=== PATIENT | male | born 1985 | race Hispanic/Latino ===

== ENCOUNTER 2025-02-03 08:59 | Emergency (ER) | payer SELFPAY ==
--- NOTE | 2025-02-03 09:09 | ED.MALEGU ---
HPI - Male Genitourinary General Chief complaint: Urogenital-Male Stated complaint: Pain in pelvic area during urination and pain in b Time Seen by Provider: 02/03/25 09:04 Source: patient Mode of arrival: ambulatory Limitations: no limitations History of Present Illness HPI Narrative: Fredrick is a 40-year-old male patient presenting to the clinic today with complaints of burning with urination, pelvic discomfort, low back pain, headache, and lightheadedness. He reports intermittent lightheadedness and headache has been going on for the past week. States that the pain with urination pelvic discomfort and low back pain has been going on for the past 3 months. Has had bilateral testicle pain off and on-no current pain. Has been seen for this before and given a pill to take care of the pain however he has not taken any antibiotics. He had STI 2.5-3 years ago. Denies any known fever but has felt warm and has had some eye burning. Denies any blood in his semen. Denies any blood in his urine. Last bowel movement was yesterday and normal for the patient. No history of prostatitis or epididymitis. Related Data Allergies Allergy/AdvReac Type Severity Reaction Status Date / Time No Known Allergies Allergy Verified 02/03/25 09:17 Review of Systems Review of Systems: Pertinent positives per HPI. Patient denies any fever, chills, rash, visual changes, cough, runny nose, sore throat, shortness of breath, chest pain, palpitations, nausea, vomiting, diarrhea, constipation. PMFSH Comments At the time of my signature, I reviewed and agree with the nursing past medical, surgical, social, and family history. There is no relevant family history pertinent to the patient complaint. Exam Narrative: General: Well-developed, well nourished, in no apparent distress. Head: Normocephalic, atraumatic. Cardio: Regular rate and rhythm, s1 and s2 normal, no murmur appreciated. Resp: Clear to auscultation bilaterally, no rhonchi, rales, wheezing or rubs. Abdomen: Soft, pliable, bowel sounds present in all quadrants, lower abdomen mildly tender to palpation, no organomegly, no CVAT tenderness. : Uncircumcised male without corneal adhesions, no lesions visualized on the scrotum or shaft of the penis, no masses palpable to the bilateral testes, no pain with palpation, no inguinal hernia palpable Musculoskeletal: No deformity, non-tender to palpation, grossly normal range of motion, muscle strength strong and equal in BLE. SLT negative, patellar reflexes 2/4 bilaterally, negative foot drop, normal gait and station Course Course Emergency Course: Portions of this record may have been created with voice recognition software. Level of Care: Express Care Visit Vital Signs Vital signs: Vital Signs Temperature 36.6 C 02/03/25 09:20 Pulse Rate 70 02/03/25 09:20 Respiratory Rate 18 02/03/25 09:20 Blood Pressure 127/84 02/03/25 09:20 Pulse Oximetry 100 02/03/25 09:20 Oxygen Delivery Room Air 02/03/25 09:20 Temperature 36.6 C 02/03/25 09:20 Pulse Rate 70 02/03/25 09:20 Respiratory Rate 18 02/03/25 09:20 Blood Pressure 127/84 02/03/25 09:20 Pulse Oximetry 100 02/03/25 09:20 Oxygen Delivery Room Air 02/03/25 09:20 Vital signs reviewed MDM - Male Genitourinary MDM Narrative Medical decision making narrative: At the time of visit patient is resting comfortably on the exam table. Patient appears to be nontoxic. Labs: Urinalysis negative for any sign of infection. We will send urine for culture. Blood sugar was 91 in the clinic today, chlamydia, gonorrhea, and Trichomonas testing was sent to the lab. Plan: Patient does not have any sign of urinary tract infection in the clinic today. Blood sugar was 91. Will send out testing for STIs. Will place the patient on doxycycline and Pyridium for his symptoms. Recommend follow-up with his PCP in regards to lightheaded and dizziness. Encourage patient to drink plenty of fluids and take Tylenol/Motrin as needed for pain or fever if his symptoms worsen he should go the emergency room. Supportive measures were discussed with the patient and they voiced understanding discharge instructions and agrees to treatment plan. Return precautions reviewed Differential Diagnosis Differential diagnosis: Likely urinary tract infection, urethritis, epididymitis, prostatitis, inguinal hernia and other (STIs) Lab Data Labs: Lab Results 02/03/25 02/03/25 Range/Units 09:23 09:45 POC Capillary Glucose 91 (65-105) mg/dl POC Urine Color Yellow POC Urine Clarity Clear POC Urine pH 7.0 POC Ur Specif Jennings 1.015 POC Urine Protein Negative (Negative) POC Ur Glucose (UA) Negative (Negative) POC Urine Ketones Negative (Negative) POC Urine Blood Negative (Negative) POC Urine Nitrite Negative (Negative) POC Urine Bilirubin Negative (Negative) POC Urine Urobilinogen 0.2 POC U Leukocyte Esteras Negative (Negative) Discharge Plan Discharge Clinical Impression: Dysuria, Intermittent lightheadedness, Acute pelvic pain Headache Qualifiers: Headache type: unspecified Headache chronicity pattern: acute headache Intractability: not intractable Qualified Code(s): R51.9 - Headache, unspecified Low back pain Qualifiers: Chronicity: acute Back pain laterality: midline Sciatica presence: without sciatica Qualified Code(s): M54.50 - Low back pain, unspecified Patient Disposition: Home Condition: Stable Instructions: Antibiotic Form, Acute Headache (ED), Pelvic Pain in Men (ED), Dysuria (ED), Lightheadedness (ED), Back Pain (ED) Additional Instructions: Urinalysis was negative for any sign of infection. We will send urine for culture. Blood sugar was 91 in the clinic today. Take doxycycline and Pyridium as prescribed May take Tylenol/Motrin as needed for headache Increase fluids and stay well hydrated Avoid tub baths If sexually active- pee before and after intercourse. Avoid tight clothing up against the genitals We have tested you for STIs in the clinic today. Avoid any sexual activity- includes oral, anal, or vaginal intercourse until you get results back and have completed any additional recommended treatment regimens. We will contact you if testing is positive and make sure your treatment was appropriate for the type of STI. Follow up with your PCP in 1 week if symptoms persist. May need further labs and imaging El análisis de orina fue negativo para cualquier signo de infección. Enviaremos un cultivo de orina. Hoy en la clínica, beverly nivel de azúcar en enid fue de 91. [place] doxiciclina y Pyridium según lo prescrito. Puede camryn Tylenol/Motrin según sea necesario para el dolor de jorge luis. Aumente la ingesta de líquidos y manténgase enrique hidratado. Evite los shameka de lien. Si tiene relaciones sexuales, orine antes y después de las relaciones sexuales. Evite usar ropa ajustada sobre los genitales. Hoy le hicimos pruebas de ITS en la clínica. Evite cualquier actividad sexual, incluyendo relaciones sexuales orales, anales o vaginales, hasta que tenga los resultados y haya completado cualquier tratamiento adicional recomendado. Nos pondremos en contacto con usted si la prueba es positiva y nos aseguraremos de que beverly tratamiento sea adecuado para el tipo de ITS. Consulte con beverly médico de cabecera en seble semana si los síntomas persisten. Podría necesitar más análisis de laboratorio y estudios por imágenes. Patient Language: Haitian Prescriptions: New doxycycline monohydrate 100 mg capsule 100 mg PO BID 7 Days Qty: 14 0RF phenazopyridine [Pyridium] 200 mg tablet 200 mg PO TID PRN (Reason: pain) Qty: 6 0RF Follow-up/Referrals: UNKNOWN,DOCTOR [Primary Care Provider] - Time of Disposition: 09:55 Quality NIHSS Nursing Documentation ED NIHSS nursing documentation: reviewed/agree
[2025-02-03 09:20] VITALS: BP 127/84; PULSE 70; RESP 18; TEMP 36.6; O2SAT 100
[2025-02-03 09:26] LABS: EDUAAPPEAR Clear; EDUABILI Negative (Negative); EDUABLOOD Negative (Negative); EDUACOLOR1 Yellow; EDUAGLUCOSE Negative (Negative); EDUAKETONE Negative (Negative); EDUALEUKO Negative (Negative); EDUANITRATE Negative (Negative); EDUAPROTEIN Negative (Negative); EDUASPGRAVITY 1.015; EDUAUROBILI 0.2
[2025-02-03 09:47] LABS: Glucose Point of Care 91 mg/dl (65-105)
[2025-02-03 19:44] LABS: Trichomonas Vag PCR NOT DETECTED (NOT DETECTE)
[2025-02-03 20:08] LABS: Chlamydia trachomatis NOT DETECTED (NOT DETECTE); Neisseria gonorrhoeae PCR NOT DETECTED (NOT DETECTE)
== END 2025-02-03 10:05 | disposition home or self-care (01) ==
PROVIDERS: Emergency Provider Nurse Practitioner Family
DX: R30.0 Dysuria (principal); R42 Dizziness and giddiness; R10.2 Pelvic and perineal pain; R51.9 Headache, unspecified; M54.50 Low back pain, unspecified
CPT/HCPCS: 81003; 82948; 87086; 87491; 87591; 87661; 99203; G0463